=== PATIENT | male | born 1995 | race Caucasian/White ===

== ENCOUNTER → 2018-07-23 | Outpatient (CLI) | payer OTHER ==
[~2018-07-23] MED LIST: GADOBUTROL 10 MMOL/10 ML PFS ONE
== END | disposition home or self-care (01) ==
LOC: CFH 10:32
PROVIDERS: ATTEND Psychiatry & Neurology Neurology
DX: Q28.2 Arteriovenous malformation of cerebral vessels (principal); Z87.74 Personal history of (corrected) congenital malformations of heart and circulatory system
CPT/HCPCS: 70250; 70544; 70553; A9585